=== PATIENT | female | born 1975 | race Caucasian/White ===

== ENCOUNTER → 2017-05-15 | Outpatient (CLI) | payer OTHER ==
[2017-05-15 13:03] LABS: BASOPHILS % (AUTO) 0.6 %; EOSINOPHILS # (AUTO) 0.1 10^3/uL (0.0-0.7); HCT - HEMATOCRIT 39.6 % (37.0-47.0); HGB - HEMOGLOBIN 13.3 g/dL (12.0-16.0); LYMPHOCYTES # (AUTO) 1.4 10^3/uL (1.5-3.5); LYMPHOCYTES % (AUTO) 22.3 %; MEAN CORPUSCULAR HEMOGLOBIN 32.7 pg (27.0-31.0); MEAN CORPUSCULAR HGB CONC 33.6 g/dL (32.0-36.0); MEAN CORPUSCULAR VOLUME 97.3 fL (81.0-99.0); MEAN PLATELET VOLUME 10.1 fL (7.9-10.8); MONOCYTES # (AUTO) 0.4 10^3/uL (0.0-1.0); MONOCYTES % (AUTO) 5.9 %; NEUTROPHILS # (AUTO) 4.4 10^3/uL (1.5-6.6); NEUTROPHILS % (AUTO) 70.2 %; RED BLOOD COUNT 4.07 10^6/uL (4.20-5.40); RED CELL DISTRIBUTION WIDTH 12.2 % (12.0-15.0); UNCORRECTED WHITE BLOOD COUNT 6.3 x10^3/uL; WHITE BLOOD COUNT 6.3 x10^3/uL (4.8-10.8)
[2017-05-15 13:37] LABS: ALBUMIN/GLOBULIN RATIO 1.9 (1.0-2.2); BILIRUBIN,TOTAL 0.9 mg/dL (0.2-1.0); BUN - BLOOD UREA NITROGEN 18 mg/dL (6-20); CALCIUM 9.6 mg/dL (8.5-10.3); CARBON DIOXIDE - CO2 28 mmol/L (21-32); CHLORIDE 101 mmol/L (101-111); CHOLESTEROL 223 mg/dL; CREATININE 0.6 mg/dL (0.4-1.0); GFR - MDRD 109 (>89); GLUCOSE 87 mg/dL (70-100); HDL CHOLESTEROL 109 mg/dL; LDL/HDL RATIO 0.9 (<4.4); SODIUM 138 mmol/L (135-145); TOTAL PROTEIN 7.2 g/dL (6.7-8.2); TRIGLYCERIDES 56 mg/dL; VLDL CHOLESTEROL 11 mg/dL
== END ==
LOC: LAB.WCP 08:00
PROVIDERS: ATTEND Physician Assistant Medical
DX: Z00.00 Encounter for general adult medical examination without abnormal findings (principal)
CPT/HCPCS: 36415; 80050; 80061

== ENCOUNTER → 2017-06-09 | Outpatient (CLI) | payer OTHER | END | disposition home or self-care (01) | LOC: DI 14:47 | PROVIDERS: ATTEND Physician Assistant Medical | DX: Z53.9 Procedure and treatment not carried out, unspecified reason (principal) ==

== ENCOUNTER 2019-11-21 13:50 | Outpatient (CLI) | payer OTHER ==
--- NOTE | 2019-11-22 08:22 | XRAY Report ---
Reason: OSTEOARTHRITIS OF BILAT SHOULDERS Procedure Date: 11/21/2019 Accession Number: [id number] / [id number] Procedure: XRN - Shoulder 3 View BILAT CPT Code: Final Report FULL RESULT: BILATERAL SHOULDER RADIOGRAPHY 3 VIEWS EXAM DATE: 11/21/2019. CLINICAL HISTORY: Osteoarthritis of both shoulders. COMPARISON: None. TECHNIQUE: AP, Grashey and scapular Y views of the shoulder. FINDINGS: Right: Bones: No fracture or other acute abnormality. Spurring at the margins of the acromioclavicular joint. Joints: Narrowing of the acromioclavicular joint. The glenohumeral joint appears normal. Soft tissues: No calcifications. Visualized lungs are clear. Left: Bones: Normal. No fracture or bone lesion. Joints: The glenohumeral and acromioclavicular joints appear normal. Soft tissues: No calcifications. Visualized lungs are clear. IMPRESSION: Degenerative changes of the right acromioclavicular joint. Otherwise normal examination of the right and left shoulder. RADIA
== END 2019-11-21 13:51 | disposition home or self-care (01) ==
LOC: DI.N 13:50
PROVIDERS: ATTEND Family Medicine
DX: M19.011 Primary osteoarthritis, right shoulder (principal)

== ENCOUNTER 2020-09-21 03:27 | Outpatient (CLI) | payer OTHER | END 2020-09-21 03:28 | disposition short-term general hospital (02) | LOC: EMS 03:27 | PROVIDERS: ATTEND Surgery | DX: L50.9 Urticaria, unspecified (principal); R22.0 Localized swelling, mass and lump, head | CPT/HCPCS: A0425; A0427 ==

== ENCOUNTER 2021-01-14 14:26 | Outpatient (CLI) | payer OTHER ==
--- NOTE | 2021-01-20 19:00 | SLEEP CARE CONSULTATION ---
Information from patient questionnaire entered by Milton Nichole. I have reviewed and concur with the information entered by Milton Nicohle. This document represents the service I personally performed and the decisions made by me, Sandy Birmingham MD, [facility]. History of Present Illness Service Date and Time: 01/14/2021 1426 Reason for Visit: New patient Chief Complaint: reports: Unrefreshed sleep, Excessive daytime sleepiness, Fatigue, Frequent awakenings at night Date of Onset: 8 - 9 years Usual bedtime: 9 PM or so Time it takes to fall asleep: 20 to 30 minutes Snores at night: No (Not that I know of) Observed to quit breathing while asleep: No Sleeps alone due to snoring: No Number of times waking at night: 3 to 4 Reasons for waking at night: reports: Bathroom Toss, Turn, or Twitch while sleeping: Yes Recalls having dreams: Yes Usually gets out of bed at: Between 5 + 6 Feels refreshed in the morning: No Morning headache: No Sleepy or fatigued during the day: Yes Ever fallen asleep while driving: Yes Takes day naps: No Dreams during day naps: No Prior sleep studies: Yes Year and Where: 2012 [facility] Additional HPI information: I have the pleasure of seeing Ms. Cortes today regarding the possibility of her having obstructive sleep apnea. As you know, she is a 45 year old lady who complains of insomnia. She had a sleep study at the [facility] almost 10 years ago which was normal. No treatment was implemented. The patient tells me that she normally goes to bed around 9 pm (her goes to bed at 10:30 pm), and it takes her approximately 20 - 30 minutes to fall asleep. She does not take any sleep aid. She has not been told that she snores at night. She has never been observed to stop breathing in her sleep. Her sleeps in the same bed. She can recall waking up on the average of 3 - 4 times during the night. Most of the time she wakes up because of having to use the bathroom. She has never awakened because of her own snoring, choking, or having to gasp for air. There is a lot of tossing and turning in her sleep. No somniloquy (sleep talking) or somnambulism (sleep walking). Generally she can recall having dreams. In the morning she usually gets up out of the bed around 6 a.m. not feeling refreshed nor rested. She usually does not have a morning headache. During the day she complains of feeling sleepy and fatigued. Her score on [place] Sleepiness Scale is 14 out of 24. She never has fallen asleep while driving nor has had any accident due to sleepiness. She usually does not take naps during the day. Upon falling asleep during the day she denies having vivid dreams. She has never had sleep paralysis, experienced cataplexy but reports symptoms of restless leg syndrome. She reports having impaired concentration during the day. 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 Patient is and lives in [place]. Have you smoked in the past 12 months: No Alcohol use: Yes Alcohol amount and frequency: 1 per day or so Caffeine use: Yes Caffeine amount and frequency: One cup in the morning Family History Family history of sleep disordered breathing: No Allergies and Home Medications Drug allergies reviewed: Yes Home medication list reviewed: Yes Review of Systems Cardiovascular: denies: high blood pressure, palpitations, chest pain, irregular heart rate or pulse, leg or foot swelling, have to sleep sitting up, other Respiratory: denies: shortness of breath, wheeze, sputum production, chronic cough, other Gastrointestinal: denies: heartburn, difficulty swallowing, nausea, vomitting, diarrhea, abdominal pain, other Urinary: denies: incontinence, frequency, urgency, impotence, other Neurological: reports: headaches Psychiatric: reports: anxiety, claustrophobia Ear/Nose/Throat: reports: wisdom teeth removed Endocrine: reports: sluggishness (tired) Musculoskeletal: reports: joint pain (stiffness) Immunologic: reports: allergies to food or environment Physical Exam Vital signs obtained and entered by: Dr. Birmingham Blood Pressure: 104/75 Cuff size: regular Heart Rate: 96 O2 Saturation: 97 Height: 5 ft 5 in Weight: 120 lb Body Mass Index: 20.0 BMI Classification: Healthy weight Neck circumference: 13 Mood/affect: normal HEENT: No craniofacial malformation Nostrils: patent to airflow Turbinates: normal Septum: midline Mouth and throat: narrow oropharynx Soft palate: normal Hard palate: normal Uvula: normal Uvula visualization: 100% Mallampati Class I Tongue: normal in size Tonsils: small Chin and jaw: normal size and position Neck: normal w/o lymphadenopathy or thyromegaly Heart: regular rate and rhythm Lungs: clear bilaterally Abdomen: soft Extremities: no edema or clubbing Neurologic: intact, no focal deficits Impression and Plan IMPRESSION: 1. Insomnia, mild, involving mainly the sleep onset. She does wake up slightly more frequently than normal. The most likely cause is excessive time spent in bed of 9 hours a night (from 9 pm to 6 am). The easiest solution is for her is to go to sleep the same time her does at 10:30 pm. An in- laboratory polysomnography will be ordered to rule out sleep disrupting conditions, such as sleep-disordered breathing, periodic leg movement of sleep, etc. Plan: 1. Schedule polysomnography and return in 1 to 2 weeks after the study to discuss result and initiate therapy. 2. Maintain a regular wake up time and spend no more than 8 hours in bed at night. Avoid naps. 3. Avoid alcohol, sedative and muscle relaxant around bedtime. Visit Type: In Office Time Spent with Patient (minutes): 15 Provider Statement: I spent 100% of the Face to Face Visit with the patient with greater than 50% spent counseling the patient and coordination of care.
[2021-01-20 19:01] VITALS: BP 104/75
== END 2021-01-14 14:27 | disposition home or self-care (01) ==
LOC: SC 14:26
PROVIDERS: ATTEND Internal Medicine Pulmonary Disease
DX: G47.00 Insomnia, unspecified (principal); G47.8 Other sleep disorders
CPT/HCPCS: 99202; 99212

== ENCOUNTER 2021-08-07 20:30 | Outpatient (CLI) | payer OTHER | END 2021-08-07 20:31 | disposition home or self-care (01) | LOC: SC 20:30 | PROVIDERS: ATTEND Internal Medicine Pulmonary Disease | DX: G47.00 Insomnia, unspecified (principal) | CPT/HCPCS: 95810 ==

== ENCOUNTER 2021-08-15 14:25 | Outpatient (CLI) | payer OTHER ==
--- NOTE | 2021-08-15 14:52 | SLEEP CARE CONSULTATION ---
Information from patient questionnaire entered by Hansa Doe. I have reviewed and concur with the information entered by Hansa Doe. This document represents the service I personally performed and the decisions made by , Diana Newell ARNP. History of Present Illness Service Date and Time: 08/15/2021 1425 Initial [place] Sleepiness Scale score: 16 (in 2020) Current [place] Sleepiness Scale score: 20 Additional HPI information: JESÚS HOBBS returns for follow up and results of the recently performed polysomnography. The patient was informed of the following findings: No significant sleep disordered breathing with an average AHI of 0.3 and a alexa oxygen saturation of 93%. I explained the pathophysiology behind obstructive sleep apnea. Patient does not have sleep apnea and was advised how weight gain could increase the risk of developing sleep apnea in the future. Patient counseled not drink alcohol less than 4 hours before bedtime as it can increase snoring and apnea. Patient was cautioned about risks of drowsy driving until sleepiness symptoms resolve. Sleep Study - Results Type of Sleep Study: Polysomnography Prior sleep studies: Yes Year and Where: 2020 [facility], [address] [place] [address] Sleep Lab Polysomnography/Home Sleep Study results: IMPRESSION: The quality of the study is good. The patient had normal sleep efficiency. The sleep architecture was normal as well. Respiratory monitoring showed no significant sleep disordered breathing (AHI = 0.3) or hypoxia (alexa oxygen saturation of 93%). The patient slept adequately in supine position (supine AHI = 0.4; nonsupine = 0.24). No audible snore. There was no significant periodic leg movement of sleep. Cardiac rhythm was normal sinus rhythm without significant arrhythmia. No abnormal behavior (parasomnia) observed during the night. Allergies and Home Medications Home medication list reviewed: Yes (ezema ointments) Review of Systems Review of systems same as previous: No (allergy to shrimp/seafood) Physical Exam Heart Rate: 98 O2 Saturation: 98 Height: 5 ft 5 in Weight: 121 lb Body Mass Index: 20.1 BMI Classification: Healthy weight Impression and Plan 1. Insomnia, unspecified. Patient has a long history of insomnia. She period ically has to repeat a sleep study to verify that she has not developed other sleep disorder. Patient's in lab PSG showed no sleep disordered breathing with an average AHI of 0.3 and alexa oxygen saturation of 93%. Patient advised to continue [facility] who is following her for her insomnia. She voiced understanding and agreement with this plan of care. Patient has had a healthy weight at this time and she was cautioned not to gain weight as this could increase the amount of apneas she has and affect her overall health. She voiced understanding. * Maintain a healthy weight * Avoid alcohol consumption near bedtime * The patient is cautioned about driving until sleepiness is completely resolved. * Return as needed. Counseling Topics: Weight control Visit Type: In Office Time Spent with Patient (minutes): 18 Provider Statement: I spent 100% of the Face to Face Visit with the patient with greater than 50% spent counseling the patient and coordination of care.
== END 2021-08-15 14:26 | disposition home or self-care (01) ==
LOC: SC 14:25
PROVIDERS: ATTEND Nurse Practitioner Family
DX: G47.00 Insomnia, unspecified (principal)
CPT/HCPCS: 99212